=== PATIENT | male | born 1980 | race Caucasian/White ===

== ENCOUNTER 2021-04-06 04:14 | Inpatient (IN) | payer MEDICAID, SELFPAY ==
[~2021-04-06] VITALS: Ht 170.2 cm; Wt 81.8 kg
--- NOTE | 2021-04-06 04:30 | NUR ---
Pt report received. Pt c/o irregular heart beat since 299 this AM. Pt describes sensation as a "skipped heart beat." Pt states that he was dx with an arrhytmia 2 years ago. Takes Cardizem for HTN. Addendum: 04/06/21 at 0510 by SDEDAJ Denies c/o C/P or SOB.
--- NOTE | 2021-04-06 04:30 | NUR ---
Patient to ER bed 7 to gown for evaluation. Side rails up.
[2021-04-06 04:31] VITALS: BP_SYST 135
--- NOTE | 2021-04-06 04:40 | NUR ---
Dr. Perez at bedside.
--- NOTE | 2021-04-06 04:50 | NUR ---
# 18 gauge angiocath placed to RIGHT AC Use of asceptic technique. Opsite placed over site. Blood return noted. Blood for lab drawn from site. Flushed with 10 cc of normal saline. No evidence of infiltration noted. Patient tolerated well.
--- NOTE | 2021-04-06 04:55 | NUR ---
Specimen for COVID-19 antigen collected and sent to lab. Pt tolerated well.
--- NOTE | 2021-04-06 05:03 | NUR ---
X-ray at bedside.
--- NOTE | 2021-04-06 05:16 | NUR ---
B/P 148/101. Denies c/o C/P or Headache. Dr. Perez notified. No new orders.
[2021-04-06] MEDS ORDERED: DILT120C89 PO (05:17)
[2021-04-06 05:21] LABS: CALCIUM 9.1 mg/dL (8.4-11.0); CREATININE 1.1 mg/dL (0.55-1.30); POTASSIUM 3.6 mmol/L (3.5-5.1)
[2021-04-06 05:28] LABS: BASOPHILS % (AUTO) 0.3 % (0.0-2.0); EOSINOPHILS # (AUTO) 0.2 K/uL (0.0-0.4); HEMOGLOBIN 16.2 g/dL (14.0-18.0); LYMPHOCYTES # (AUTO) 2.1 K/uL (1.0-5.5); LYMPHOCYTES % (AUTO) 27.2 % (20.5-51.5); MEAN CORPUSCULAR HEMOGLOBIN 31 pg (27-31); MEAN CORPUSCULAR HGB CONC 34 % (32-36); MEAN CORPUSCULAR VOLUME 89 fL (79.0-98.0); MONOCYTES # (AUTO) 0.7 K/uL (0.0-1.0); MONOCYTES % (AUTO) 9.4 % (1.7-9.3); NEUTROPHILS # (AUTO) 4.7 K/uL (1.8-7.7); NEUTROPHILS % (AUTO) 60.1 % (40.0-70.0); PLATELET COUNT (AUTO) 230 K/uL (130-430); RED BLOOD CELL COUNT(AUTO) 5.29 MIL/uL (4.2-6.2); RED CELL DISTRIBUTION WIDTH 13.2 % (9.0-15.0); WHITE BLOOD COUNT (AUTO) 7.8 K/uL (4.8-10.8)
[2021-04-06 05:36] LABS: ALBUMIN 3.9 g/dL (3.4-4.8); PHOSPHORUS 3.7 mg/dL (2.7-4.5); THYROID STIMULATING HORMONE 2.91 uIu/mL (0.36-3.74); TOTAL BILIRUBIN 0.6 mg/dL (0.0-1.0)
--- NOTE | 2021-04-06 06:10 | NUR ---
Called for Tele bed. Awaiting call back.
--- NOTE | 2021-04-06 06:26 | NUR ---
Called for Tele bed. Pt to go to room 109C. Instructed to bring pt at 0715.
--- NOTE | 2021-04-06 06:29 | NUR ---
Patient will be admitted to care of Dr. Rosibel Gomez. Admitted to Tele unit. Will go to room 109C. Belongings list completed. Complete and up to date summary report printed. SBAR report to be given at bedside with opportunity for questions.
--- NOTE | 2021-04-06 06:44 | NUR ---
Admission Note Received patient from ER with diagnosis of AFIB. Initial Plan of Care discussed-patient verbalized understanding. Oriented to room, call light, pain management and safety.
[2021-04-06 06:50] VITALS: BP_SYST 134
[2021-04-06 07:11] VITALS: BP_SYST 134
--- NOTE | 2021-04-06 07:26 | NUR ---
CONSULTATION PAGED REASON FOR CONSULTATION:NEW ONSET A-FIB WAS CONSULT CALED?Y PERSON WHO WAS NOTIFIED:WINIFRED CONSULTING PHYSICIAN:ANGEL MUÑIZ [employer] SPECIALTY:[employer] PHONE NUMBER:[phone] REQUESTING PHYSICIAN:ELVA HORTA
[2021-04-06] MEDS ORDERED: DILTIAZEM HCL 120 MG CAP.SR.24H PO ONE (11:45)
--- NOTE | 2021-04-06 12:00 | NUR ---
PT GIVEN AM MEDS. PT DENIES CHEST PAIN, NO UNTOWARD INCIDENT SINCE ADMISSION TO UNIT.
--- NOTE | 2021-04-06 14:37 | NUR ---
PT SIGNED AMA. PT HAS NO C/O OF CHEST PAIN, NO SOB, NO DISTRESS, NO DIZZINESS.
--- NOTE | 2021-04-06 14:57 | NUR ---
CANCELLED THE CARDIOLOGY CONSULT WITH DR ANGEL FALK. SPOKE TO
[2021-04-07] MEDS ORDERED: DILTIAZEM HCL 120 MG CAP.SR.24H PO SCH (09:00)
== END 2021-04-06 14:37 | disposition left against medical advice (07) | DRG 201 ==
LOC: SED 04:14 → STU 05:49
PROVIDERS: ADMIT Preventive Medicine Preventive Medicine/Occupational Environmental Medicine; ATTEND Preventive Medicine Preventive Medicine/Occupational Environmental Medicine
DX: I48.91 Unspecified atrial fibrillation (principal); I10 Essential (primary) hypertension; Z20.822 Contact with and (suspected) exposure to COVID-19
CPT/HCPCS: 36415; 71045; 80053; 83735; 84100; 84443; 84484; 85025; 93005; 99285; G0378